=== PATIENT | male | born 1980 | race Caucasian/White ===

== ENCOUNTER 2023-12-06 09:50 | Emergency (ER) | payer BC, MEDICAID ==
[~2023-12-06] VITALS: Ht 175.3 cm; Wt 98.7 kg
[~2023-12-06 09:50] MED LIST: LEVE10002 PO; MSC15T PO; TEMA15CA PO
[2023-12-06] MEDS: proparacaine 0.5% ophthalmic drops 15ml EACHEYE ONE (10:52)
[2023-12-06] MEDS ORDERED: CIPR2.5D21 EACHEYE (11:02)
[2023-12-06 11:20] VITALS: BP 147/85; PULSE 87; RESP 16; TEMP 98; O2SAT 98
== END 2023-12-06 11:04 | disposition home or self-care (01) ==
LOC: ER 09:50
DX: H10.9 Unspecified conjunctivitis (principal); Z79.2 Long term (current) use of antibiotics; Z79.899 Other long term (current) drug therapy
CPT/HCPCS: 99283

== ENCOUNTER 2024-01-14 15:41 | Emergency (ER) | payer BC ==
[~2024-01-14] VITALS: Ht 175.3 cm; Wt 96.7 kg
[2024-01-14 15:58] VITALS: BP 150/99; PULSE 87; RESP 18; TEMP 99; O2SAT 98
[2024-01-14] MEDS ORDERED: LEVE10002 PO (16:07)
[2024-01-14] MEDS ORDERED: TEMA15CA PO (16:07)
[2024-01-14] MEDS ORDERED: TEMA15CA5 PO (16:08)
== END 2024-01-14 17:22 | disposition home or self-care (01) ==
LOC: ER 15:42
DX: G40.89 Other seizures (principal); F11.90 Opioid use, unspecified, uncomplicated; Z76.0 Encounter for issue of repeat prescription; Z79.899 Other long term (current) drug therapy
CPT/HCPCS: 99281